=== PATIENT | female | born 1950 | race Caucasian/White ===

== ENCOUNTER → 2017-03-12 | Outpatient (CLI) | payer OTHER ==
[~2017-03-12] MED LIST: CALCIUM 600 +1 EAC1 PO; DUONEB 2.5-0.5 M3 ML INH; EQL OMEGA 3 FI1 EACH PO; FOLIC ACID1 MG PO; HUMIRA40 MG/0.8 SQ; LACTINEX CHEWA1 EACH PO; LEVAQUIN 500 M500 M2 PO; LEVOTHYROXINE0.05 MG PO; LUTEIN20 MG PO; METHOTREXATE 22.5 M1 PO; NAPROSYN500 MG PO; NEURONTIN600 MG PO; PREDNISONE 10 M10 MG PO; TRIAMTERENE-HC1 EAC1 PO; TYLENOL325 MG PO
[2017-03-12 07:44] LABS: CREATININE 1.2 mg/dL (0.6-1.0)
== END ==
LOC: RAD 06:57
PROVIDERS: Otolaryngology Plastic Surgery within the Head & Neck
DX: Z12.31 Encounter for screening mammogram for malignant neoplasm of breast (principal); C80.1 Malignant (primary) neoplasm, unspecified; M47.892 Other spondylosis, cervical region; R06.02 Shortness of breath

== ENCOUNTER → 2018-08-09 | Outpatient (CLI) | payer OTHER ==
[2018-08-09 10:15] LABS: HEMATOCRIT 47.9 % (37.0-47.0); HEMOGLOBIN 15.6 gm/dL (12.0-15.0); MCH 27.8 pg (26.0-34.0); MCHC 32.6 g/dL (28.0-37.0); MCV 85.3 fL (80.0-100.0); RBC 5.62 mil/uL (4.20-5.00); RDW 14.9 % (10.5-14.5); WBC 6.1 thou/uL (4.0-11.0)
[2018-08-09 10:28] LABS: ALBUMIN 3.4 g/dL (3.4-5.0); CREATININE 1.2 mg/dL (0.6-1.0); POTASSIUM 4.5 mmol/L (3.5-5.1); TOTAL BILIRUBIN 0.4 mg/dL (<0.1-1.0); TOTAL PROTEIN 8.2 g/dL (6.4-8.2)
== END ==
LOC: RAD 09:31
PROVIDERS: Otolaryngology Plastic Surgery within the Head & Neck
DX: C01 Malignant neoplasm of base of tongue (principal); J34.2 Deviated nasal septum; H90.3 Sensorineural hearing loss, bilateral; E66.01 Morbid (severe) obesity due to excess calories; Z99.81 Dependence on supplemental oxygen; Z92.3 Personal history of irradiation; Z86.69 Personal history of other diseases of the nervous system and sense organs

== ENCOUNTER → 2018-12-17 | Outpatient (CLI) | payer OTHER | LOC: RAD 11:55 | DX: R06.02 Shortness of breath (principal); R06.00 Dyspnea, unspecified; Z91.048 Other nonmedicinal substance allergy status; Z85.810 Personal history of malignant neoplasm of tongue ==

== ENCOUNTER → 2019-12-09 | Outpatient (CLI) | payer OTHER | LOC: RAD 11:17 | PROVIDERS: ATTEND Internal Medicine Pulmonary Disease | DX: J43.9 Emphysema, unspecified (principal); R91.8 Other nonspecific abnormal finding of lung field ==

== ENCOUNTER → 2020-01-23 | Outpatient (CLI) | payer OTHER ==
[2020-01-23 11:36] LABS: CREATININE 1.1 mg/dL (0.6-1.0)
== END ==
LOC: CAT 10:13
PROVIDERS: ATTEND Otolaryngology Plastic Surgery within the Head & Neck
DX: C01 Malignant neoplasm of base of tongue (principal); H90.3 Sensorineural hearing loss, bilateral; J34.2 Deviated nasal septum; E66.01 Morbid (severe) obesity due to excess calories; Z99.81 Dependence on supplemental oxygen; Z86.69 Personal history of other diseases of the nervous system and sense organs; Z92.3 Personal history of irradiation; Z85.810 Personal history of malignant neoplasm of tongue

== ENCOUNTER → 2020-02-11 | Outpatient (CLI) | payer OTHER | LOC: MRI 08:26 | PROVIDERS: ATTEND Otolaryngology Plastic Surgery within the Head & Neck | DX: J39.2 Other diseases of pharynx (principal); R93.89 Abnormal findings on diagnostic imaging of other specified body structures ==

== ENCOUNTER → 2020-12-07 | Outpatient (CLI) | payer OTHER | LOC: RAD 12:14 | PROVIDERS: ATTEND Internal Medicine Pulmonary Disease | DX: J98.4 Other disorders of lung (principal); M25.78 Osteophyte, vertebrae; J44.9 Chronic obstructive pulmonary disease, unspecified ==

== ENCOUNTER 2021-02-20 16:53 | Inpatient (IN) | payer OTHER ==
[~2021-02-20] VITALS: Ht 157.5 cm; Wt 137.4 kg
[~2021-02-20 16:53] MED LIST changes: -LEVOTHYROXINE0.05 MG PO; +NEURONTIN 400400 M1 PO; -NEURONTIN600 MG PO; +SYNTHROID100 MC1 PO
[2021-02-20 16:59] VITALS: BP 121/90
[2021-02-20 17:34] LABS: ABSOLUTE NEUTROPHILS 7.6 thou/uL (1.4-8.2); BASOPHILS 0.6 % (0.0-2.0); EOSINOPHILS 0.2 % (0.0-3.0); LYMPHOCYTES 1.9 % (24.0-44.0); MCH 27.2 pg (26.0-34.0); MCHC 32.2 g/dL (28.0-37.0); MCV 84.4 fL (80.0-100.0); MONOCYTES 7.9 % (1.0-8.0); PLATELET COUNT 219 thou/uL (150-400); POLYS 89.4 % (36.0-66.0); RBC 6.63 mil/uL (4.20-5.00); RDW 15.3 % (10.5-14.5); WBC 8.5 thou/uL (4.0-11.0)
[2021-02-20 17:58] LABS: ANION GAP 16 mmol/L (7-16); BUN 36 mg/dL (7-18); CALCIUM 8.6 mg/dL (8.5-10.1); CHLORIDE 105 mmol/L (98-107); CO2 21 mmol/L (21-32); CREATININE 1.8 mg/dL (0.6-1.0); GLUCOSE 116 mg/dL (74-106); POTASSIUM 3.7 mmol/L (3.5-5.1); SODIUM 142 mmol/L (136-145)
[2021-02-20 18:07] LABS: ALBUMIN 2.6 g/dL (3.4-5.0); MAGNESIUM 1.5 mg/dL (1.8-2.4); PHOSPHORUS 2.1 mg/dL (2.6-4.7); SALICYLATE < 2.8 mg/dL (2.8-20.0); SGOT 64 U/L (15-37); SGPT 36 U/L (14-59); TOTAL BILIRUBIN 0.4 mg/dL (0.2-1.0); TOTAL PROTEIN 6.7 g/dL (6.4-8.2)
[2021-02-20 19:57] LABS: URINE BLOOD 2+ (Negative); URINE CLARITY CLOUDY; URINE COLOR YELLOW; URINE GLUCOSE-RANDOM* NEGATIVE (Negative); URINE KETONES 1+ (Negative); URINE NITRITE-REFLEX NEGATIVE (Negative); URINE PROTEIN (DIPSTICK) 1+ (Negative); URINE SPECIFIC GRAVITY 1.025 (1.005-1.035); URINE UROBILINOGEN 0.2 E.U./dl (0.2-1.0)
[2021-02-20 20:02] LABS: ICTOTEST (BILI CONFIRMATORY) Negative (Negative); URINE BILIRUBIN NEGATIVE (Negative); URINE LEUKOCYTES-REFLEX 3+ (Negative)
[2021-02-20 20:17] LABS: COARSE GRANULAR CASTS 4-10 Moderate /LPF (None Seen); SQUAMOUS 0-3 Few /LPF (0-3)
[2021-02-20 20:18] LABS: BACTERIA-REFLEX >30 Many /HPF (None Seen); CRYSTALS None Seen /LPF (None Seen); URINE RBC 3-10 Few /HPF (NONE SEEN)
[2021-02-20 20:33] LABS: AMP/METHAMP Negative (Negative); BARBITURATES Negative (Negative); BENZODIAZEPINES Negative (Negative); COCAINE Negative (Negative); METHADONE Negative (Negative); OPIATES Negative (Negative); PCP Negative (Negative)
[2021-02-21] MEDS ORDERED: LEFLUNOMIDE 1010 MG PO (02:07)
[2021-02-21] MEDS ORDERED: ROSUVASTATIN CA10 MG PO (02:08)
[2021-02-21 04:48] LABS: CALCIUM 8.6 mg/dL (8.5-10.1); CREATININE 2.2 mg/dL (0.6-1.0); HEMATOCRIT 50.3 % (37.0-47.0); HEMOGLOBIN 16.2 gm/dL (12.0-15.0); MAGNESIUM 2.3 mg/dL (1.8-2.4); MCH 27.6 pg (26.0-34.0); MCHC 32.3 g/dL (28.0-37.0); MCV 85.5 fL (80.0-100.0); RBC 5.89 mil/uL (4.20-5.00); RDW 15.3 % (10.5-14.5); WBC 9.4 thou/uL (4.0-11.0)
[2021-02-21 04:49] LABS: POTASSIUM 4.7 mmol/L (3.5-5.1)
--- NOTE | 2021-02-21 07:28 | EKG ---
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: jacqueline : 1950 Requested By: Rickey Lozada Order Number: [id number] MD: Fabio Clark Measurements Intervals [place] Rate: 126 P: 54 TX: 123 QRS: 101 QRSD: 94 T: 12 QT: 315 QTc: 457 Interpretive Statements Sinus tachycardia Multiform ventricular premature complexes Probable left atrial enlargement Compared to ECG 05/29/2015 09:29:08 Ventricular premature complex(es) now present Sinus rhythm no longer present Electronically Signed On 02-21-2021 7:28:14 CDT by Fabio Clark [email or web address] <ELECTRONICALLY SIGNED> By: Fabio Clark MD, [facility] 02/21/21 0728 08 08 Fabio Clark MD, [facility] /EPI
--- NOTE | 2021-02-21 07:29 | EKG ---
[address] [address] ELECTROCARDIOGRAM REPORT Name: PHILIP BERNARDO Room #: 170-5 ADM IN M.R.#: [id number] Admission: 02/20/21 Attend Phys: Jeannette Ramos MD Discharge: Date of : 54 Report #: [id number] 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 : 1950 Requested By: Rickey Lozada Order Number: [id number] MD: Fabio Clark Measurements Intervals [place] Rate: 36 P: 68 AR: QRS: 159 QRSD: 168 T: 13 QT: 616 QTc: 477 Interpretive Statements Complete AV block with wide QRS complex Compared to ECG 02/20/2021 17:09:32 AV block, complete (third-degree) now present Sinus tachycardia no longer present Ventricular premature complex(es) no longer present Myocardial infarct finding no longer present Electronically Signed On 02-21-2021 7:28:46 CDT by Fabio Clark [email or web address] <ELECTRONICALLY SIGNED> By: Fabio Clark MD, FACC 02/21/21 0728 171 18 Fabio Clark MD, [facility] /EPI
[2021-02-21 08:47] VITALS: BP 118/69
[2021-02-21 09:49] VITALS: BP 118/69
[2021-02-21 10:15] VITALS: BP 128/61
--- NOTE | 2021-02-21 12:26 | NUR ---
WOUND CARE CONSULT; THE PATIENT AREAS OF CONCERN WERE ASSESSED WITH PICTURES DUE TO COVID RESTRICTIONS. THE BUTTOCKS HAVE A RASH LIKEY CONSITANT WITH INCONTINENCE RELATED DERMITIS RE; DIARRHEA. THE OTHER SKINFOLDS ARE CONSISTANT WITH A FUNGAL ETIOLOGY. RECOMMENDATIONS; BILATERAL BUTTOCKS AREAS; CLEANSE WITH WARM SOAPY WATER, COMPLETLY DRY, APPLY ANTIFUNGAL BARRIER CREAM. ALL OTHER SKIN FOLDS, APPLY INTERDRY, CHANGE WEEKLY/PRN. DISCUSSED WITHE RN TODAY
--- NOTE | 2021-02-21 14:02 | NUR ---
ADMISSION NOTE: 1100 PT ADMITTED TO ROOM 356, ALERT AND ORIENTED X3, FORGETFUL AT TIMES. CURRENTLY ON 3L, SOB WITH EXERTION. DENIES CHEST PAIN. CURTAIN WORKER PLACED ON PT. IVF RUNNING PER ORDER. ASSESSMENT AND ADMISSION COMPLTED. EXCORIATION TO THE BUTTOCKS AND SKIN FOLDS. INTERDRY APPLIED AND ANTIFUGAL CREAM WELL. PT STATES SHE USES A WALKER AT HOME. ENHANCED AND FALL PREACTIONS IN PLACE. DENIES ANY ANY NEEDS SHAUN. WILL CONTINUE TO MONITOR
[2021-02-21 15:38] VITALS: BP 108/69
[2021-02-21 19:46] VITALS: BP 132/66
[2021-02-21 23:23] VITALS: BP 110/68
--- NOTE | 2021-02-21 23:35 | NUR ---
Patient had a 6 beat run of Vtach, asymptomatic. Orders received to recheck BMP and Magnesium levels.
[2021-02-22 00:08] LABS: CALCIUM 8.7 mg/dL (8.5-10.1); CREATININE 2.5 mg/dL (0.6-1.0); MAGNESIUM 2.3 mg/dL (1.8-2.4); POTASSIUM 4.1 mmol/L (3.5-5.1)
--- NOTE | 2021-02-22 05:08 | NUR ---
Patient making slow progress towards outcome goals. Vital signs stable. Requires 3L oxygen/NC for sats mid 90's. Marginal urine output. Chronic bilateral lower extremity pain, denies need ofr pain medication.
[2021-02-22 05:37] VITALS: BP 131/69
[2021-02-22 07:20] LABS: CALCIUM 8.6 mg/dL (8.5-10.1); CREATININE 2.4 mg/dL (0.6-1.0); POTASSIUM 3.9 mmol/L (3.5-5.1)
[2021-02-22 07:37] VITALS: BP 110/60
--- NOTE | 2021-02-22 08:19 | HC ---
[facility] [place] [address] CONSULTATION Name: PHILIP BERNARDO Room #: 356- ADM IN M.R.#: [id number] Admission: 02/20/21 Attend Phys: Clara Dye MD Discharge: Date of : 54 Report #: [id number] THIS REPORT FOR: cc: Preethi Hopkins MD, Kristin E. MD Barry, Joseph W. MD ~ DATE OF SERVICE: 02/21/2021 INFECTIOUS DISEASE CONSULTATION ATTENDING PHYSICIAN: Dr. Ramos. REASON FOR EVALUATION: Pneumonitis, complication of COVID-19 infection with respiratory failure, also complicated urinary tract infection. HISTORY OF PRESENT ILLNESS: The patient is a 70-year-old woman with history of rheumatoid arthritis and perhaps ____ immunosuppression. It is notable she had received Moderna 2 shot series for coronavirus. She apparently had experienced multiple falls at home, cough, some dyspnea, weakness, also loose stools. It is not clear if she had any fevers, but did admit to chills, diminished appetite. Evaluation was undertaken, was found to have a positive coronavirus-19. ID now testing. Lactic acid was elevated at 3.4, on repeat is down to 1.9. Procalcitonin 0.18. Mild to moderate renal impairment. Creatinine 1.8 with estimated GFR of 28. Urine drug screen was negative. Urinalysis did show moderate pyuria, marked bacteriuria. She was empirically started on vancomycin and Zosyn. Overall, she states she feels better. She does admit to some left lower quadrant pain, has been intermittent now she states, that has improved actually. She is maintained on supplemental oxygen at 2.5 liters. ALLERGIES: None known. CURRENT MEDICATIONS: Dexamethasone, zinc, ascorbic acid, pantoprazole, Zosyn, guaifenesin, azithromycin, ceftriaxone. She was not on vancomycin. PAST MEDICAL HISTORY: As described above, rheumatoid arthritis, history of hypothyroidism, throat cancer, Guillain-[place]. SOCIAL HISTORY: No ethanol or tobacco use. Denies illicit drug use. FAMILY HISTORY: Noncontributory. REVIEW OF SYSTEMS: Otherwise unremarkable with the exception of the above. PHYSICAL EXAMINATION: GENERAL: She appears somewhat chronically ill. She is pleasant, cooperative. She is lucid, mild to moderate distress. [address] [address] CONSULTATION Name: PHILIP BERNARDO Room #: [address] [place] [address] IN M.R.#: [id number] Admission: 02/20/21 Attend Phys: Clara Dye MD Discharge: Date of : 54 Report #: [id number] VITAL SIGNS: T-max 103.5, more recently 98.7, pulse 104, respirations 17, blood pressure 118/69. SKIN: Warm, dry, no rashes. HEENT: Nasal cannula in place. Normocephalic. Extraocular muscles intact. NECK: Supple. LUNGS: Few scattered coarse breath sounds bilaterally. HEART: Regular, do not appreciate a murmur. ABDOMEN: She is tender in the left lower quadrant. GENITOURINARY AND RECTAL: Deferred. LABORATORY DATA: Blood cultures are sterile thus far. Electrolytes: Sodium 143, potassium 4.7, chloride 107, bicarbonate is 19, anion gap of 17, BUN and creatinine 42 and 2.2. Estimated GFR of 22. ____ of 2.225. Lactic acid 1.9, down from 3.4. Urine drug screen was negative. Urinalysis: 16-25 white cells, greater than 30 bacteria. Chest x-ray: Patchy interstitial infiltrates. ASSESSMENT AND PLAN: 1. COVID-19 infection, complicated by pneumonitis and respiratory failure. 2. Complicated urinary tract infection. 3. Possible colitis, has been complicated by some renal insufficiency and perhaps level of immune suppression. We will continue empiric therapy with piperacillin/tazobactam. She is adjusted for some renal insufficiency. I think it is reasonable to image her abdomen to exclude inflammatory process involving the left lower quadrant. This could be a contributing factor as well. At this point, she is not overtly toxic. Continue to monitor expectantly at risk for additional complications. <ELECTRONICALLY SIGNED> By: Gary Mata MD 02/22/21 0819 0846 0943 Gary Mata MD /nt
[2021-02-22 11:46] VITALS: BP 122/67
--- NOTE | 2021-02-22 11:52 | NUR ---
PT AWAKE ALERT AOX4, ABLE TO FOLLOW SIMPLE COMMAND AND MAKE NEEDS KNOWN. PT W/ FREQUENT LOOSE BM,SACRUM NOTED W/ EXCORIATION AND REDNESS, EXTRA PROTECTIVE CREAM PLACE, TURN AND REPOSITIONED. PT FOUND TO BE CDIFF POSITIVE AND POSITIVE FOR OCCULT BLOOD. STOOL NOTED TO BE DARK.
--- NOTE | 2021-02-22 15:13 | NUR ---
INITIAL ASSESSMENT: Received consult. NORMAN reviewed chart and spoke with nursing and attending physician. Pt was admitted from home due to COVID. Pt placed in Enhanced Isolation. Pt is febrile and on 3L of O2. Pt is on IV abx. Therapy ordered to evaluate pt for discharge needs. Pt with hx of throat cancer. Pt has used [facility] in the past. NORMAN spoke with pt via phone. Introduced role of SW. Pt is alert/orientated. Pt states she lives at home with dtr and grandchildren. Prior to admission, pt was independent with ADLs. Pt has a walker. There are 2 steps to enter. No steps inside. Pt has used [facility] in the past. No hx of post-acute placement. Pt's PCP is Dr. Preethi Hopkins. Pt states her plan is to return home when medically stable. Pt gave consent for SW to contact her dtr, Melania, to provide update. NORMAN spoke with Melania via phone. Introduced role of NORMAN. Lengthy discussion regarding discharge plan. Melania was recently hospitalized for COVID. Melania states they would prefer to have pt return home and are agreeable with HH. Family does not want pt to go to a nursing facility, but would consider if strongly recommended. ST eval ordered to assess pt's swallowing. Pt's dtr states pt has been eating very slowly and chokes frequently with food and drinks. NORMAN provided Melania with contact info for NORMAN and 3W. NORMAN is following to assist as needed with discharge planning.
--- NOTE | 2021-02-22 17:55 | NUR ---
70F, AOX4, MOVING ALL EXTREMITIES, POSITIVE FOR CDIFF AND OCCULT BLOOD, PT HAVING FREQUENT BOWEL MOVEMENT, GOOD URINE OUTPUT POST LASIX .
[2021-02-22 19:32] VITALS: BP 123/75
--- NOTE | 2021-02-22 20:54 | NUR ---
PT ASLEEP IN SEMIFOWLERS POSITION IN BED. EASILY AROUSED WITH CONVERSATION. O2 NC INCREASED TO 4L. SATURATION 92% ON 3L. 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 RESPIRATORY THERAPIST NOTIFIED. LUNGS CRACKLES. PT GROANS WHEN NOT TALKING. SPEECH CLEAR APPROPRIATE. SOA WITH REPOSITIONING. GENERALIZED EDEMA, OBESE. SCHROEDER TO DD. IVF INTACT. BED ALARM ON. PT ANSWERING QUESTIONS APROPRIATELY AND PROMPTLY. PT PROVIED SNACK. PAIN BLE AND PRN PROVIDED.
[2021-02-23 03:40] VITALS: BP 148/80
[2021-02-23 07:42] LABS: CALCIUM 8.8 mg/dL (8.5-10.1); CREATININE 2.1 mg/dL (0.6-1.0); POTASSIUM 3.9 mmol/L (3.5-5.1)
--- NOTE | 2021-02-23 07:50 | NUR ---
PT REMAINS ON ISOLATION FOR COVID-19. 3L O2 PER NC WITH SATS AROUND 90-94%. SCHROEDER IN PLACE DRAINING CLEAR YELLOW URINE. C-DIFF RESULTED POSITIVE. NON-PRODUCTIVE COUGH NOTIFIED. ROSY AREA AND BUTTOXS ARE EXCORIATED. INCONTINENT OF BOWEL X1, BARRIER CREAM PROVIDED.
[2021-02-23 07:54] VITALS: BP 141/80
[2021-02-23 11:38] LABS: PROT/CREAT RATIO 0.9; URINE CREATININE-RANDOM* 122.1 mg/dL; URINE PROTEIN-RANDOM* 112.1 mg/dL (<11.9)
[2021-02-23 11:59] VITALS: BP 99/60
[2021-02-23 12:00] VITALS: BP 91/67
--- NOTE | 2021-02-23 13:22 | NUR ---
WOUND CARE F/U; THE SKIN FOLDS FUNGAL AREAS ARE BEING TREATED EFFECTIVLY WITH INTERDRY. THE BUTTOCKS AREAS ARE BEING TREATED WITH ANTIFUNGAL BARRIER CREAM. THE AREA IS CONSISTANT WITH A HEMOSIDERIN STAINING PROCESS. NO CHANGES AT THIS TIME.
[2021-02-23 15:16] LABS: HEMATOCRIT 46.3 % (37.0-47.0); HEMOGLOBIN 15.3 gm/dL (12.0-15.0); MCH 27.1 pg (26.0-34.0); MCV 82.2 fL (80.0-100.0); RBC 5.64 mil/uL (4.20-5.00); RDW 15.2 % (10.5-14.5); WBC 6.1 thou/uL (4.0-11.0)
[2021-02-23 15:31] VITALS: BP 120/64
--- NOTE | 2021-02-23 15:48 | 2DMMODE ---
[facility] [place] [address] 2 D/M-MODE ECHOCARDIOGRAM Name: PHILIP BERNARDO Room #: 356-P ADM IN M.R.#: [id number] Admission: 02/20/21 Attend Phys: Clara Dye MD Discharge: Date of : 54 Report #: [id number] THIS REPORT FOR: cc: Preethi Hopkins MD, Kristin E. MD Santiago, Patrick MD [facility] ~ APPROVED REPORT Study performed: 02/23/2021 14:51:07 EXAM: Comprehensive 2D, Doppler, and color-flow Echocardiogram Patient Location: Bedside Room #: 356 Status: routine BSA: 2.17 HR: 81 bpm BP: 99/60 mmHg Rhythm: NSR Other Information Study Quality: Good Indications Dyspnea Morbid obesity, Covid 19 2D Dimensions RVDd: 31.31 mm IVSd: 14.73 (7-11mm) LVOT Diam: 20.19 (18-24mm) LVDd: 32.74 mm PWd: 14.59 (7-11mm) Ascending Ao: 25.92 (22-36mm) LVDs: 27.29 (25-40mm) Left Atrium: 44.66 (27-40mm) Aortic Root: 32.37 mm Volumes Left Atrial Volume (Systole) Single Plane 4CH: 49.12 mL Single Plane 2CH: 51.71 mL LA ESV Index: 28.00 mL/m2 Aortic Valve AoV Peak Dax.: 1.39 m/s AO Peak Gr.: 7.77 mmHg LVOT Max P.06 mmHg LVOT Max V: 1.33 m/s [facility] [address] [place] [address] 2 D/M-MODE ECHOCARDIOGRAM Name: OSIRIS BERNARDOETTE Room #: 356-P [facility] IN [facility].#: [id number] Admission: 02/20/21 Attend Phys: Michael Lynne Discharge: Date of : 54 Report #: [id number] [id number] Vmax: 3.05 cm2 AI Vmax: 4.27 m/s AI [place]: 1.82 m/s2 AI PHT: 679.22 ms Mitral Valve E/A Ratio: 0.5 MV Decel. Time: 289.24 ms MV E Max Dax.: 0.59 m/s MV A Dax.: 1.15 m/s MV PHT: 83.88 ms IVRT: 133.79 ms Pulmonary Valve PV Peak Dax.: 1.13 m/s PV Peak Gr.: 5.09 mmHg Pulmonary Vein P Vein S: 0.37 m/s P Vein A: 0.28 m/s P Vein D: 0.13 m/s P Vein A Dur.: 110.7 msec P Vein S/D Ratio: 2.85 Left Ventricle The left ventricle is normal size. Moderate concentric left ventricular hypertrophy. The left ventricular systolic function is normal. The left ventricular ejection fraction is within the normal range. LVEF is 65%. Grade I - abnormal relaxation pattern. Right Ventricle The right ventricle is normal size. The right ventricular systolic function is normal. Atria The left atrium size is normal. The right atrium size is normal. Aortic Valve The aortic valve is normal in structure. The Aortic valve is sclerotic. Mild aortic regurgitation. There is no aortic valvular stenosis. Mitral Valve The mitral valve is normal in structure. Mitral valve leaflets are thickened. Trace mitral regurgitation. No evidence of mitral valve stenosis. Tricuspid Valve [facility] [address] [place] [address] 2 D/M-MODE ECHOCARDIOGRAM Name: PHILIP BERNARDO Room #: 356-P [facility] IN .R.#: [id number] Admission: 02/20/21 Attend Phys: Michael Lynne Discharge: Date of : 54 Report #: [id number] The tricuspid valve is normal in structure. There is no tricuspid valve regurgitation noted. Pulmonic Valve The pulmonary valve is normal in structure. There is no pulmonic valvular regurgitation. Great Vessels The aortic root is normal in size. IVC is normal in size and collapses >50% with inspiration. Pericardium There is no pericardial effusion. <Conclusion> Normal left ventricle size with moderate concentric hypertrophy Ejection fraction 65% Grade 1 diastolic function Normal right ventricle size/function Normal atrial size Mild aortic valve insufficiency Mild to moderate mitral annular calcification No evidence of mitral valve dysfunction No tricuspid valve insufficiency No pericardial effusion Normal aortic root size. <ELECTRONICALLY SIGNED> By: Fabio Clark MD, FACC 02/23/21 154 [id number] 154 Fabio Clark MD, FACC /INF
[2021-02-23 16:57] LABS: MAGNESIUM 1.8 mg/dL (1.8-2.4)
--- NOTE | 2021-02-23 17:43 | NUR ---
Patient is alet and oriented x4. She has even respirations. Patients lung sounds this shift are diminished with coarse diminshed breath sounds. Patients has pulses felt bilaterally in both upper and lower extremities. Patient has edema +2 in her lower extremities. Patient has had two incontinent BM's this shift. Patietns bottom is extremely excoriated. Cream is applied to patients bottom. Patients IV in her right AC came out. New IV a 20g was placed in patients right hand was placed. Patient has had a decresed appetite with all three meals. Patient has been encouraged to eat and take in supplement. Patient will continue to be monitored.
[2021-02-23 19:08] VITALS: BP 116/71
--- NOTE | 2021-02-23 22:33 | NUR ---
PT ALERT X3. VSS AFEBRILE. UNLABORED ONO2 4LNC PRESENTLY. NO C/O PAIN. WATCHING TV. NO S/S DISTRESS. WILL CONTINUE TO MONITOR PT FOR CHANGES.
[2021-02-24 04:21] VITALS: BP 140/90
[2021-02-24 06:25] LABS: ALBUMIN 2.5 g/dL (3.4-5.0); CALCIUM 8.6 mg/dL (8.5-10.1); CREATININE 1.8 mg/dL (0.6-1.0); PHOSPHORUS 3.4 mg/dL (2.5-4.9)
--- NOTE | 2021-02-24 07:11 | EKG ---
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 : 1950 Requested By: Clara Dye Order Number: [id number] MD: Fabio Clark Measurements Intervals [place] Rate: 78 P: 20 [place]: 146 QRS: 77 QRSD: 115 T: 111 QT: 356 QTc: 406 Interpretive Statements Sinus rhythm Abnormal T, consider ischemia, lateral leads Artifact in lead(s) I,III,aVR,aVL,aVF Compared to ECG 02/20/2021 17:19:49 T-wave abnormality now present Possible ischemia now present AV block, complete (third-degree) no longer present Electronically Signed On 02-24-2021 7:10:54 CDT by Fabio Clark [email or web address] <ELECTRONICALLY SIGNED> By: Fabio Clark MD, FACC 02/24/21 0710 181 181 Fabio Clark MD, FAC /EPI
[2021-02-24 08:35] VITALS: BP 120/68
[2021-02-24 12:13] VITALS: BP 113/62
--- NOTE | 2021-02-24 14:17 | NUR ---
NORMAN reviewed chart and spoke with nursing and attending physician. Pt remains in Enhanced Isolation due to COVID. Pt is afebrile and on 6L of O2. Pt required up to 12L with activity. Pt is on IV abx, IV steorids and IV lasix. NORMAN placed call to pt's room. The line was busy. NORMAN spoke with pt's dtr, Melania, via phone. Provided update and discussed discharge plan. Pt's family is hoping that pt will be able to return home with HH and possibly home O2. Pt's dtr states she would need to discuss with pt and family if post-acute care is being recommended. NORMAN provided options for in-network SNFs accepting COVID pts. NORMAN notified [facility] liaison of pt needing HH services. Pt's dtr requested to speak with physician regarding pt's medications. NORMAN provided Melania's contact info to attending physician. NORMAN is following to assist as needed with discharge planning.
[2021-02-24 17:03] VITALS: BP 113/67
--- NOTE | 2021-02-24 18:27 | NUR ---
PATIENT IS ALERT AND ORIENTED X3 THIS SHIFT. SHE IS UNSURE OF WHEN IT IS. PATIENT HAS EVEN RESPIRATIONS AND OCCASIONALLY REPORTS THAT SHE FEEL SHORT OF BREATH. PATIENT WAS ON 4L OF OXYGEN BUT WAS INCREASED TO 5L OF OXYGEN HER SATURATION KEPT FALLING BELOW 90%. PATIENT WAS ALSO ADDED TO CONTINOUS OXYGEN MONITORING. PATIENTS BOTTOM IS EXCORIATED SHE HAS BEEN CLEANED/ TURNED EVERY TWO HOURS AND THE CREAM HAS BEEN APPLIED. PATIENT HAS HAD FIVE INCONTINENT STOOLS THIS SHIFT. PATIENTS STOOLS ARE A GREENISH BROWN COLOR. PATIENT HAD AN ORDER FOR A URINE SPECIMENT TO BE COLLECTED. SPECIMEN WAS COLLECTED AND TAKEN TO THE LAB. PATIENT STILL HAS A SCHROEDER CATHETER IN PLACE. PATIENTS APPETITE CONTINUES TO REMAIN POOR BUT AFTER EDUCATION ON WOUND HEALING HAS BEEN DRINKING ALL OF HER SUPPLEMENTS. PATIENT IS STARTED ON REMDESIVIR THIS SHIFT AND THE MEDICATION IS CURRENTLY RUNNING. PATIENT REPORTS THAT SHE HAS PAIN IN HER LEFT HIP DUE TO ARTHRITIS AND THAT SHE HAS HAD IT FOR YEARS. PATIENT WAS MEDICATED FOR PAIN PER HER ORDERS. PATIENT HAS NO FURTHER MEDICAL CONCERNS OF COMPLAINTS AT THIS TIME. PATIENT WILL CONTINUE TO BE MONITORED.
[2021-02-24 18:48] LABS: URINE BILIRUBIN NEGATIVE (Negative); URINE BLOOD TRACE (Negative); URINE CLARITY CLEAR; URINE COLOR YELLOW; URINE GLUCOSE-RANDOM* NEGATIVE (Negative); URINE KETONES NEGATIVE (Negative); URINE LEUKOCYTES-REFLEX NEGATIVE (Negative); URINE NITRITE-REFLEX NEGATIVE (Negative); URINE PROTEIN (DIPSTICK) NEGATIVE (Negative); URINE UROBILINOGEN 0.2 E.U./dl (0.2-1.0)
[2021-02-24 19:30] VITALS: BP 131/67
--- NOTE | 2021-02-24 22:47 | NUR ---
PT RESTING IN BED, INCREASE IN NC O2 NEEDS YESTERDAY. SOA WITH EXERTION. LUNGS COARSE. PT CHEERFUL AND TALKATIVE. SCHROEDER TO DD. ROSY AND GROIN AREA RED AND BARRIER CREAM APPLIED. PT REPORTS L HIP DISCOMFORT WITH REPOSITIONING, BUT RELIEVED ONCE IN POSITION. ISOLATION CDIFF AND COVID. PT HAD HS SNACK. BED ALARM ON.
[2021-02-25 04:55] VITALS: BP 117/78
--- NOTE | 2021-02-25 05:26 | NUR ---
02 SAT MAINTAINING AT 84% ON 5L. FINGER PROBE AND NC CHANGED, INCREASED TO 6L WENT TO 85%. RESPIRATORY CAME TO SEE PT, NOW ON 10L. PROVIDER CONTACTED, STAT CHEST XRAY AND ABG ORDERED.
[2021-02-25 06:00] LABS: BE(vivo) 0.3 mmol/L (-2 to +3); HCO3 25.1 mmol/L (22.0-26.0); PCO2 41.4 mmHg (35.0-45.0); pH 7.401 (7.360-7.450); sO2 88.1 % (92.0-98.0)
--- NOTE | 2021-02-25 06:06 | NUR ---
PROVIDER CALLED WITH ABG RESULTS. PULMONARY IS NOT CONSULTED AND PROVIDER UPDATED.
--- NOTE | 2021-02-25 06:38 | NUR ---
PULMONARY CONSULT CALLED. PT ASKED IF SHE WANTED NURSE TO CALL DAUGHTER. PT STATED SHE WOULD CALL DAUGHTER AND PICKED UP CELL PHONE.
[2021-02-25 06:54] LABS: ALBUMIN 2.3 g/dL (3.4-5.0); CALCIUM 8.8 mg/dL (8.5-10.1); CREATININE 1.8 mg/dL (0.6-1.0); DIRECT BILIRUBIN 0.1 mg/dL (<0.1-0.2); PHOSPHORUS 3.1 mg/dL (2.5-4.9); POTASSIUM 3.7 mmol/L (3.5-5.1); TOTAL BILIRUBIN 0.3 mg/dL (0.2-1.0); TOTAL PROTEIN 6.5 g/dL (6.4-8.2)
[2021-02-25 07:48] VITALS: BP 126/7
[2021-02-25 11:17] VITALS: BP 132/78
--- NOTE | 2021-02-25 14:25 | NUR ---
SW reviewed chart and spoke with nursing and attending physician. Pt remains in Enhanced Isolation due to COVID. Pt is afebrile and now requiring optiflow. Pt is on IV meds/abx and Remdesivir. Pulmonary consulted today. Pt may need to transfer to ICU. No weekend discharge planned. NORMAN is following to assist as needed with discharge planning.
[2021-02-25 15:36] VITALS: BP 113/67
[2021-02-25 17:55] LABS: HEMATOCRIT 47.2 % (37.0-47.0); HEMOGLOBIN 15.4 gm/dL (12.0-15.0); MCH 27.1 pg (26.0-34.0); MCHC 32.6 g/dL (28.0-37.0); RBC 5.68 mil/uL (4.20-5.00); RDW 14.8 % (10.5-14.5); WBC 3.8 thou/uL (4.0-11.0)
[2021-02-25 18:08] LABS: CALCIUM 8.6 mg/dL (8.5-10.1); CREATININE 1.9 mg/dL (0.6-1.0); POTASSIUM 3.8 mmol/L (3.5-5.1)
[2021-02-25 18:16] LABS: MAGNESIUM 1.6 mg/dL (1.8-2.4)
--- NOTE | 2021-02-25 18:44 | NUR ---
pt increased to optiflow this morning. stable. complains of chest pain in afternoon. cardiac workup negative so far. labs still pending. patient sleeping comfortably.
[2021-02-25 18:48] VITALS: BP 115/68
--- NOTE | 2021-02-26 00:40 | NUR ---
PT AWAKE WATCHING TV IN BED. PT ABLE TO REPOSITION UPPER BODY AND MOVES RLE EASILY, PT REPORTS POSITION PAIN WITH L HIP. OPTI ROXANNE INTACT. LUNGS COARSE, SKIN TONE DUSKY. GENERALIZED EDEMA. SCHROEDER TO DD, ON 24 HR URINE UNTIL 0930 AM. ANTI FUNGAL CREAM TO GROIN AND ROSY AREA. INCONTINENT OF STOOL, CDIFF ISOLATION. NO C/O CHEST DISCOMFORT. PT HAD HS SNACK. BED ALARM ON.
--- NOTE | 2021-02-26 04:18 | NUR ---
PT O2 SAT DURING SLEEP WAS 89 TO 90, SHE SLEEPS WITH MOUTH OPEN. RESPIRATORY NOTIFIED, PT NOW HAS ON REBREATHER WITH OPTI ROXANNE. SATS 90.
--- NOTE | 2021-02-26 06:11 | NUR ---
TALKED WITH PT IF SHE WOULD CONSIDER SLEEPING ON HER STOMACH TO POSSIBLE HELP WITH HER OXYGEN SATURATION. PT STATED SHE WOULD CONSIDER IT.
[2021-02-26 06:19] LABS: ABSOLUTE NEUTROPHILS 4.1 thou/uL (1.4-8.2); BASOPHILS 0.1 % (0.0-2.0); HEMATOCRIT 49.5 % (37.0-47.0); LYMPHOCYTES 2.5 % (24.0-44.0); MCHC 32.4 g/dL (28.0-37.0); MCV 83.3 fL (80.0-100.0); MONOCYTES 10.7 % (1.0-8.0); PLATELET COUNT 219 thou/uL (150-400); POLYS 86.7 % (36.0-66.0); RBC 5.94 mil/uL (4.20-5.00); WBC 4.7 thou/uL (4.0-11.0)
--- NOTE | 2021-02-26 06:35 | NUR ---
PT HAD 5 BEAT VTACH NOT SYMPTOMATIC. RESPIRATORY NOTIFIED. PT O2 SAT 87 88% WITH OPTI ROXANNE AWAKE AND NRB MASK. THERAPIST COMING TO SEE PT.
[2021-02-26 06:59] LABS: ALBUMIN 2.3 g/dL (3.4-5.0); CALCIUM 8.7 mg/dL (8.5-10.1); CREATININE 1.7 mg/dL (0.6-1.0); DIRECT BILIRUBIN 0.1 mg/dL (<0.1-0.2); PHOSPHORUS 2.9 mg/dL (2.5-4.9); POTASSIUM 3.6 mmol/L (3.5-5.1); TOTAL BILIRUBIN 0.3 mg/dL (0.2-1.0); TOTAL PROTEIN 6.3 g/dL (6.4-8.2)
[2021-02-26 07:04] VITALS: BP 111/53
[2021-02-26 11:18] VITALS: BP 127/80
--- NOTE | 2021-02-26 11:29 | EKG ---
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 Tutor: FSCHWALMARIO : 1950 Requested By: Jeannette Ramos Order Number: [id number] MD: Ezequiel Pugh Measurements Intervals [place] Rate: 81 P: 28 WI: 134 QRS: 115 QRSD: 108 T: 62 QT: 331 QTc: 385 Interpretive Statements Sinus rhythm Occasional supraventricular complexes Probable left atrial enlargement Right ventricular conduction delay Nonspecific T wave abnormality Compared to ECG 02/23/2021 18:14:45 Atrial premature complex(es) now present Electronically Signed On 02-26-2021 11:29:23 CDT by Ezequiel Pugh [email or web address] <ELECTRONICALLY SIGNED> By: Ezequiel Pugh MD, [facility] 02/26/21 1129 1728 1728 Ezequiel Pugh MD, [facility] /EPI
--- NOTE | 2021-02-26 11:38 | EKG ---
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: : 1950 Requested By: Jeannette Ramos Order Number: [id number] MD: Ezequiel Pugh Measurements Intervals [place] Rate: 81 P: 26 TX: 128 QRS: 128 QRSD: 107 T: 36 QT: 390 QTc: 453 Interpretive Statements Sinus rhythm Atrial premature complexes Right ventricular conduction delay Compared to ECG 02/25/2021 17:28:24 No significant changes found Electronically Signed On 02-26-2021 11:37:57 CDT by Ezequiel Pugh [email or web address] <ELECTRONICALLY SIGNED> By: Ezequiel Pugh MD, [facility] 02/26/21 1137 1041 1041 Ezequiel Pugh MD, FACC /EPI
[2021-02-26 12:13] LABS: URINE CREATININE 57.05 mg/dL; URINE PROTEIN (MG/DL) 42.6 mg/dL
[2021-02-26 15:14] VITALS: BP 108/63
[2021-02-26 15:56] VITALS: BP 127/71
--- NOTE | 2021-02-26 18:05 | NUR ---
PT IS CURRENTLY ON 50L AND 100% OPTIFLOW, SOB WITH ANY ACTIVITY. PT HAD 2 LOOSE BM TODAY. CONTINUE TO BE IN ISOLATION FOR COVID AND C-DIFF. SCHROEDER IN PLACE. REPOSITION EVERY 2 HOURS. FALL PRECAUTIONS, WILL CONTINUE TO MONITOR
[2021-02-26 20:14] VITALS: BP 135/70
[2021-02-26 23:47] VITALS: BP 125/71
[2021-02-27] VITALS (71 sets, daily range): BP systolic 63–164; BP diastolic 40–121
[2021-02-27 00:04] LABS: HCO3 22.8 mmol/L (22.0-26.0); PCO2 36.1 mmHg (35.0-45.0); pH 7.419 (7.360-7.450); sO2 87.9 % (92.0-98.0)
[2021-02-27 00:05] LABS: PO2 52.3 mmHg (80.0-100.0)
--- NOTE | 2021-02-27 01:09 | NUR ---
PT CARE ASSUMED WITH PT IN BED WATCHING TV.PT IS A/O X4.PT ON OPTIFLOW AND SAT 92% AT START OF SHIFT.PT CONTINUE DESAT TO 78% AND BIPAP STARTED BUT SAT 82%.MONTSE MALLOY NOTIFIED AND ABG STAT ORDERED AND MORPHINE 2MG ONETIME AND DR JIM NOTIFIED AND SAID OT TRANSFER TO ICU .PT TRANSFERED TO ICU AT 0020 WITH BIPAP.
[2021-02-27 01:34] LABS: BE(vivo) -2.4 mmol/L (-2 to +3); HCO3 23.7 mmol/L (22.0-26.0); PCO2 45.4 mmHg (35.0-45.0); PO2 64.7 mmHg (80.0-100.0); pH 7.336 (7.360-7.450); sO2 91.3 % (92.0-98.0)
[2021-02-27 07:25] LABS: ABSOLUTE NEUTROPHILS 7.4 thou/uL (1.4-8.2); BASOPHILS 0.2 % (0.0-2.0); HEMATOCRIT 47.3 % (37.0-47.0); HEMOGLOBIN 15.4 gm/dL (12.0-15.0); LYMPHOCYTES 2.6 % (24.0-44.0); MCH 27.1 pg (26.0-34.0); MCHC 32.6 g/dL (28.0-37.0); MCV 83.3 fL (80.0-100.0); MONOCYTES 7.8 % (1.0-8.0); PLATELET COUNT 238 thou/uL (150-400); POLYS 89.4 % (36.0-66.0); RBC 5.68 mil/uL (4.20-5.00); RDW 15.1 % (10.5-14.5); WBC 8.3 thou/uL (4.0-11.0)
--- NOTE | 2021-02-27 07:44 | NUR ---
PT ADMITTED TO RM 238 FROM 3WEST AROUND 0045 FOR INCREASED SOA REQUIRING MECH VENTILATION. ABGS CALLED TO DR JIM AND ER DR CAME UP TO INTUBATE PT. ETT 7.5 23 AT CORNER OF MOUTH INSERTED. PT SEDATED ON PROPOFOL AT 25 MCG. LEVOPHED STARTED DUE TO BP WENT INTO 60'S AND 70'S. AFTER LEVOPHED AT 5 MCG PTS'S BP HAS BEEN WNL. SATS WNL ON CURRENT VENT. SETTINGS OF PC 35, PEEP 15, RT 30, AND FIO2 90%. I INFORMED PT'S DAUGHTER WE MOVED PT TO THE ICU. ATTEMPTED TO GET AHOLD OF DAUGHTER AGAIN TO NOTIFIY HER WE PLACED PT IN RESTRAINTS TO PROTECT ETT. NO CALL RETURNED YET THIS AM. DAY SHIFT NS NOTIFIED TO F/U. [facility] LAB[facility] STILL PENDING. PERFORMED THIS AM SEPSIS ASSESSMENT ON LAB RESULTS.
[2021-02-27 10:32] LABS: ALBUMIN 2.4 g/dL (3.4-5.0); CALCIUM 8.5 mg/dL (8.5-10.1); CREATININE 1.8 mg/dL (0.6-1.0); DIRECT BILIRUBIN 0.5 mg/dL (<0.1-0.2); PHOSPHORUS 3.1 mg/dL (2.5-4.9); TOTAL BILIRUBIN 1.2 mg/dL (0.2-1.0); TOTAL PROTEIN 5.9 g/dL (6.4-8.2)
[2021-02-27 10:43] LABS: POTASSIUM 3.7 mmol/L (3.5-5.1)
--- NOTE | 2021-02-27 12:51 | NUR ---
VAT CONSULTED FOR CVAD. PT'SLABS,MEDS,HX,ORDER AND CONSENT VERIFIED. RIJ WAS WIDELY PATENT WITH USG. 6FR TL POWER JACC 25CM INSERTED X1 STICDK TO 8CM EXTERNAL. STAT CXR ORDERED.BLEEDING AT SITE GAUZE APPLIED.
--- NOTE | 2021-02-27 13:42 | NUR ---
CXR CONFIRMED RIJ PLACEMENT NEAR CAJ. IJ RELEASED FOR IMMEDIATE USE PER PROTOCOL
--- NOTE | 2021-02-27 16:45 | NUR ---
proned, head placed in surgical head pillow/device with assistance of 2 RT's and 3 RN's and 1 vice president of nursing. all well tolerated, sao2 up to 100%.
[2021-02-28] VITALS (97 sets, daily range): BP systolic 67–178; BP diastolic 45–100
[2021-02-28 05:08] LABS: CREATININE 1.5 mg/dL (0.6-1.0); DIRECT BILIRUBIN 0.3 mg/dL (<0.1-0.2); PHOSPHORUS 3.1 mg/dL (2.6-4.7); POTASSIUM 3.4 mmol/L (3.5-5.1); TOTAL BILIRUBIN 0.8 mg/dL (0.2-1.0); TOTAL PROTEIN 5.3 g/dL (6.4-8.2)
--- NOTE | 2021-02-28 08:19 | NUR ---
PATIENT PRONED ON DAY SHIFT AND FLIPPED AT 0410 TODAY. PATIENT BECAME HYPOTENSIVE AND REQUIRED LEVO GTT. PATIENT CONTINUES PROPOFOL GTT.
--- NOTE | 2021-02-28 09:25 | NUR ---
Nutrition: REC Vital AF at 40 mL/hr goal rate, add beneprotein in water flushes if ordered
--- NOTE | 2021-02-28 10:19 | NUR ---
PT HAS HAD DECLINE IN MEDICAL STATUS AND NOT APPROPRIATE FOR OT EVAL AT THIS TIME. IF MEDICAL STATUS CHANGES, PLEASE SUBMIT NEW OT ORDER FOR EVALUATION
--- NOTE | 2021-02-28 12:58 | NUR ---
WOUND CARE F/U; AN ASSESSMENT WAS COMPLETED TODAY. THE SKIN FILDS AND BUTTOCKS AREAS SHOW IMPROVEMENTS. THE BUTTOCKS HAS TINY AREAS THAT REMAIN OPEN. CURRENTLY USING ANTFUNGAL BARRIER AND GOOD WOUND CLEANSING. NO CHANGES ARE NECCESSARY TODAY.
--- NOTE | 2021-02-28 16:00 | NUR ---
surgical consent signed by pt's son prior to surgery. to surgery per icu bed with internal investigator accompanied by OR crew.
--- NOTE | 2021-02-28 16:28 | NUR ---
Cm reviewed chart and spoke with care team during rounds. Pt is sedated maintained on ventilatory support FiO2 75% PEEP of 15. Pt is covid and cdiff positive. Pt is on oral and iv van. It is to be consulted related to her NG. Cm following.
--- NOTE | 2021-02-28 17:10 | NUR ---
dobhoff not patent, unable to pass any fluid or meds. notified Dr. Dye/Dr. John, orders received and placed for IR placement of NG/OG since pt had HX: throat cancer. RN called IR department, no staff present. obtained Dr. Alonzo's phone number, then promptly called at [phone]. informed by , pt would require scoping performed by GI team. ng/og lacks "marking" that is highlighted under fluoroscopy. notified Dr. Dye. Proning held off in anticipation of placement of NG/OG today.
--- NOTE | 2021-02-28 17:19 | NUR ---
returned from surgery on icu bed, registered nurse cardiac telemetry accompanied by surgery crew. sedated on vent, dilaudid iv gtt and ns 100cc/hr restarted. ST, trach shiley 7.0 XLT attached to vent- continuing previous vent settings. lungs clear, mid abd large Wound Vac Ultra 125mmHg with serosanguinous drainage 125cc present on icu arrival. small guaze intact in r previous peg site. peg intact, clamped in left abd, 7.5cm at hub. georges intact draining yellow urine with sediment. a couple of family members present, they each came to see pt, one by one then only remained briefly. they stated that Dr. Barnett spoke with family notifying them after surgery.
[2021-03-01] VITALS (125 sets, daily range): BP systolic 88–156; BP diastolic 51–86
[2021-03-01 04:39] LABS: HEMATOCRIT 49.6 % (37.0-47.0); HEMOGLOBIN 15.9 gm/dL (12.0-15.0); MCH 26.7 pg (26.0-34.0); MCV 83.5 fL (80.0-100.0); RBC 5.94 mil/uL (4.20-5.00); RDW 15.4 % (10.5-14.5)
[2021-03-01 04:48] LABS: ALBUMIN 2.3 g/dL (3.4-5.0); CALCIUM 8.3 mg/dL (8.5-10.1); DIRECT BILIRUBIN 0.3 mg/dL (<0.1-0.2); PHOSPHORUS 4.3 mg/dL (2.6-4.7); POTASSIUM 4.7 mmol/L (3.5-5.1); TOTAL BILIRUBIN 0.5 mg/dL (0.2-1.0); TOTAL PROTEIN 5.7 g/dL (6.4-8.2)
[2021-03-01 04:50] LABS: CREATININE 2.5 mg/dL (0.6-1.0)
--- NOTE | 2021-03-01 06:11 | NUR ---
NO ACUTE EVENTS OVERNIGHT. PT REMAINS ON LOW DOSE LEVOPHED.
--- NOTE | 2021-03-01 12:36 | NUR ---
spoke with daughter regarding egd for placement of oral gastric tube or nasal gastric tube, consent signed. [id number] procedure occurred. despite fentanyl increased to 100mcg/hr, versed to 6 then 10mg/hr, pt required additional sedation. per md order, versed 3 mg iv x 2 administered. placement of oral gastric tube performed with stat portable chest x ray pending. well tolerated.
--- NOTE | 2021-03-01 15:50 | NUR ---
CM DISCUSSED CARES WITH TEAM DURING UNIT ROUNDS THIS AM. PT CONTINUES ON THE VENT FIO2 60% PEEP OF 15. PT WENT TO HAVE GI PLACE OG TUBE THIS DAY. CM FOLLOWING.
--- NOTE | 2021-03-01 17:30 | NUR ---
PULLED BACK OG TO 75 CM AT TEETH, AIR BOLUS CONFIRMED.
--- NOTE | 2021-03-01 17:45 | NUR ---
ART, RT INCREASED SA02 TO 100% WITH SA02 NOTED LOW 90% AFTER PRONING. PRONED WITH 4 RN'S AND 1 RT, WELL TOLERATED.
[2021-03-02] VITALS (95 sets, daily range): BP systolic 87–156; BP diastolic 43–73
--- NOTE | 2021-03-02 04:12 | NUR ---
0300 PT TURNED BACK SUPINE, 4 RN'S AND RT AT BEDSIDE ASSISTING. NO COMPLICATIONS.
[2021-03-02 05:23] LABS: MCH 27.4 pg (26.0-34.0); MCHC 32.5 g/dL (28.0-37.0); MCV 84.3 fL (80.0-100.0); RBC 4.99 mil/uL (4.20-5.00); RDW 15.6 % (10.5-14.5); WBC 8.2 thou/uL (4.0-11.0)
[2021-03-02 06:02] LABS: HEMOGLOBIN 13.7 gm/dL (12.0-15.0)
[2021-03-02 06:09] LABS: CALCIUM 8.1 mg/dL (8.5-10.1); CREATININE 2.3 mg/dL (0.6-1.0)
--- NOTE | 2021-03-02 14:16 | NUR ---
Tube feeding off at this time, plan for prone around 1430.
--- NOTE | 2021-03-02 15:45 | NUR ---
1545- Patient placed in prone position, she was momentarily restless, however became more calm after turn.
--- NOTE | 2021-03-02 19:00 | NUR ---
Patient progressing towards plan of care as evidenced by ability to wean down on fio2. She appears to improve oxygenation when prone, and she was able to come off levophed after prone placement. Plan of care is to continue to monitor patient vital signs, gtt needs, and overall assessments.
[2021-03-03] VITALS (96 sets, daily range): BP systolic 104–153; BP diastolic 45–73
[2021-03-03 05:23] LABS: HEMATOCRIT 38.9 % (37.0-47.0); HEMOGLOBIN 12.7 gm/dL (12.0-15.0); MCH 27.2 pg (26.0-34.0); MCHC 32.6 g/dL (28.0-37.0); MCV 83.5 fL (80.0-100.0); RBC 4.66 mil/uL (4.20-5.00); RDW 15.6 % (10.5-14.5); WBC 7.4 thou/uL (4.0-11.0)
[2021-03-03 05:31] LABS: CALCIUM 8.1 mg/dL (8.5-10.1); POTASSIUM 3.9 mmol/L (3.5-5.1)
--- NOTE | 2021-03-03 09:46 | NUR ---
WOUND CARE F/U; ASSESSMENT OF THE PANNOUS AND GROIN AREAS. THESE AREAS ARE HEALED. NO ODOR. THE BILATERAL BUTTOCKS ARE HEALED. ONLY HEMOSIDRIN STAINING REMAINS. RECOMMENDATIONS; CONTINUE CURRENT WOUND CARE ORDERS FOR PREVENTION. CONTINUE TO TURN AND OFFLOAD WITH PILLOW AND WEDGES,HEELS ETC. RN PRESENT.
--- NOTE | 2021-03-03 12:35 | NUR ---
If OGT unclogged and able to use, recommend new tube feed goal of vital AF at 55ml/hr with 250ml water flushes every 6hr
--- NOTE | 2021-03-03 14:05 | NUR ---
Case discussed in ICU rounds this morning. Pt remains vented but is down to 50% FIO2. Proning prn, renal following due to elev cre and decreased urine output, being treated for cdiff, on levo, responsive to painful stimuli,and GI to address clogged og tube for enteral feedings. Nursing has updated the pt's dtr. DC needs and timeframe are uncertain at this time pending her progress. Will continue to follow.
--- NOTE | 2021-03-03 15:38 | NUR ---
PT IS PROGRESSING TOWARD POC EVIDENCED BY LOWERING FI02 TO 0.45. THE VERSED IS IS AT 2MG/ML GTT WHICH HAS BEEN ADEQUATE FOR THE PT COMFORT, BREATHING, AND LOC. SHE IS FOLLOWING COMMANDS VIA SQUEEZING WITH BOTH HANDS MODERATELY; SHE OPENS HER EYES TO VERBAL COMMAND. THIS PT IS PARRA AND WILL LIFT HERSELF OFF THE BED WHILE DOING ORAL CARE. SHE HAS NORMAL RR THAT IS EVEN AND NONLABORIOUS AND SATTING 96-99%. THE LEVOPHED REMAINS OFF ALL DAY WITH A MAP > 60.
--- NOTE | 2021-03-03 18:58 | NUR ---
THIS RN NOTIFIES THE CARDIOLOGY ANS SERV THAT THIS PT HAS A RUN OF 15 BEATS SHOWING VT. MAG REPLACEMENT 2GM INITIATED PER THE PROTOCOL. THIS PT HAS AN ADEQUATE MAP AND OXYGENATION.
[2021-03-04] VITALS (77 sets, daily range): BP systolic 99–162; BP diastolic 47–84
[2021-03-04 06:04] LABS: ALBUMIN 3.2 g/dL (3.4-5.0); CALCIUM 8.7 mg/dL (8.5-10.1); CREATININE 1.6 mg/dL (0.6-1.0); POTASSIUM 3.5 mmol/L (3.5-5.1); TOTAL BILIRUBIN 0.9 mg/dL (0.2-1.0); TOTAL PROTEIN 5.2 g/dL (6.4-8.2)
--- NOTE | 2021-03-04 14:04 | NUR ---
PT IS NOT PROGRESSING TOWARD THE POC EVIDENCED BY INCREASING DEMAND FOR FIO2 FROM 0.5 TO CURRENTLY 0.7 AND PEEP INCREASING TO 14. PT IS SATTING 91% HAS BEEN DESSATING TO 88% THROUGHOUT THE DAY. DR AGUILERA IS AWARE OF THE INCREASE OXYGEN DEMAND. PT REMAINS OFF LEVOPHED WHILE MAINTAINING MAP>70 WITH A NSR. CARDIOLOGY WAS AT THE BEDSIDE THIS MORNING THEY DID NOT ADD ORDERS AT THIS TIME. THIS PT IS REQUIRING MORE SEDATION FOR COMFORT BUT FOLLOWS COMMANDS AND PARRA. HER UO IS ADEQUATE; SHE HAS A NEGATIVE FLUID STATUS. UROLOGY IS CONSULTED FOR HEMATURIA AFTER THE UROLOGIST CAME TO THE BEDSIDE NO ORDERS ARE RECEIVED.
--- NOTE | 2021-03-04 17:30 | NUR ---
ASSUMED CARE OF PATIENT AT 0600. VENT SETTINGS WERE 30/400/.50 +12. POST ROUNDS PER DR AGUILERA WE INCREASED THE PEEP TO 14. PATIENT SATURATION INCREASED. NO SIGNS OF DISTRESS WERE NOTED.
[2021-03-05] VITALS (29 sets, daily range): BP systolic 95–182; BP diastolic 52–103
[2021-03-05 05:50] LABS: CALCIUM 8.8 mg/dL (8.5-10.1); CREATININE 1.6 mg/dL (0.6-1.0); POTASSIUM 3.7 mmol/L (3.5-5.1)
[2021-03-05 09:02] LABS: PCO2 42.9 mmHg (35.0-45.0); PO2 103.2 mmHg (80.0-100.0); pH 7.401 (7.360-7.450); sO2 97.7 % (92.0-98.0)
[2021-03-05 09:39] LABS: HEMATOCRIT 38.6 % (37.0-47.0); HEMOGLOBIN 12.6 gm/dL (12.0-15.0); MCH 26.7 pg (26.0-34.0); MCHC 32.7 g/dL (28.0-37.0); MCV 81.8 fL (80.0-100.0); RBC 4.71 mil/uL (4.20-5.00); RDW 15.3 % (10.5-14.5); WBC 10.1 thou/uL (4.0-11.0)
--- NOTE | 2021-03-05 17:30 | NUR ---
SPOKE WITH PT'S DAUGHTER, NAEL, FROM [id number] AND SHE WAS UPDATED AND EDUCATED ON THE PATIENT'S CONDITION AND PLAN OF CARE. PATIENT NOT PRORESSING TOWARDS THE PLAN OF CARE EVIDENCED BY CONTINUED HIGH OXYGEN DEMANDS AND NEED FOR INCREASED SEDATION TO COMPLY WITH THE VENTILATOR.
[2021-03-06] VITALS (45 sets, daily range): BP systolic 75–155; BP diastolic 48–93
[2021-03-06 04:24] LABS: ABSOLUTE NEUTROPHILS 12.8 thou/uL (1.4-8.2); BASOPHILS 0.6 % (0.0-2.0); HEMATOCRIT 37.2 % (37.0-47.0); MCH 26.3 pg (26.0-34.0); MCHC 32.2 g/dL (28.0-37.0); MCV 81.6 fL (80.0-100.0); MONOCYTES 2.3 % (1.0-8.0); PLATELET COUNT 120 thou/uL (150-400); POLYS 96.1 % (36.0-66.0); RBC 4.55 mil/uL (4.20-5.00); RDW 14.9 % (10.5-14.5); WBC 13.4 thou/uL (4.0-11.0)
[2021-03-06 04:35] LABS: ALBUMIN 4.1 g/dL (3.4-5.0); CREATININE 1.5 mg/dL (0.6-1.0); POTASSIUM 3.8 mmol/L (3.5-5.1); TOTAL BILIRUBIN 1.6 mg/dL (0.2-1.0)
[2021-03-06 05:10] LABS: BE(vivo) 1.9 mmol/L (-2 to +3); HCO3 29.6 mmol/L (22.0-26.0); PCO2 61.7 mmHg (35.0-45.0); PO2 74.3 mmHg (80.0-100.0); pH 7.299 (7.360-7.450); sO2 93.1 % (92.0-98.0)
[2021-03-06 15:43] LABS: BE(vivo) 1.5 mmol/L (-2 to +3); HCO3 30.9 mmol/L (22.0-26.0); sO2 76.8 % (92.0-98.0)
[2021-03-06 15:44] LABS: PCO2 74.9 mmHg (35.0-45.0); PO2 49.8 mmHg (80.0-100.0); pH 7.234 (7.360-7.450)
--- NOTE | 2021-03-06 17:41 | NUR ---
PATIENT NOT PROGRESSING TOWARDS THE PLAN OF CARE EVIDENCED BY SUSTAINED TACHYCARDIA AND POOR OXYGENATION DESPITE MAXIMUM SUPPORT FROM THE VENTILATOR.
[2021-03-07] VITALS (47 sets, daily range): BP systolic 100–148; BP diastolic 47–72
[2021-03-07 04:57] LABS: HEMATOCRIT 33.1 % (37.0-47.0); HEMOGLOBIN 10.7 gm/dL (12.0-15.0); MCHC 32.4 g/dL (28.0-37.0); MCV 83.5 fL (80.0-100.0); PLATELET COUNT 80 thou/uL (150-400); RBC 3.96 mil/uL (4.20-5.00); RDW 15.1 % (10.5-14.5); WBC 9.1 thou/uL (4.0-11.0)
[2021-03-07 05:10] LABS: CALCIUM 8.7 mg/dL (8.5-10.1); CREATININE 1.9 mg/dL (0.6-1.0); POTASSIUM 4.3 mmol/L (3.5-5.1); TOTAL BILIRUBIN 1.5 mg/dL (0.2-1.0); TOTAL PROTEIN 5.8 g/dL (6.4-8.2)
--- NOTE | 2021-03-07 06:53 | EKG ---
[address] [address] ELECTROCARDIOGRAM REPORT Name: PHILIP BERNARDO Room #: 238-P ADM IN M.R.#: [id number] Admission: 02/20/21 Attend Phys: Clara Dye MD Discharge: Date of : 54 Report #: [id number] [facility] Test Date: 2021-03-06 Test Time: 16:07:46 Pat Name: PHILIP BERNARDO Department: Room: 238 P Gender: F Tellers Supervisor: RUDY : 1950 Requested By: Hernandez Robert Order Number: [id number] : Fabio Clark Measurements Intervals [place] Rate: 132 P: [place]: QRS: 121 QRSD: 110 T: -1 QT: 271 QTc: 402 Interpretive Statements Atrial fibrillation Ventricular tachycardia, unsustained Right axis deviation Borderline repolarization abnormality Compared to ECG 02/26/2021 10:41:24 Ventricular tachycardia now present Right-axis deviation now present Sinus rhythm no longer present Atrial premature complex(es) no longer present Electronically Signed On 03-07-2021 6:52:51 FOUNDRY MELT SUPERVISOR by Fabio Clark [email or web address] <ELECTRONICALLY SIGNED> By: Fabio Clark MD, FACC 03/07/21 0652 [id number] [id number] Fabio Clark MD, [facility] /EPI
[2021-03-07 09:36] LABS: BE(vivo) -2.8 mmol/L (-2 to +3); HCO3 26.7 mmol/L (22.0-26.0); PCO2 72.6 mmHg (35.0-45.0); PO2 63.8 mmHg (80.0-100.0); pH 7.183 (7.360-7.450); sO2 85.9 % (92.0-98.0)
--- NOTE | 2021-03-07 11:50 | NUR ---
PT INTUBATED AND SEDATED. SEDATION VACATION THIS AM, PT WAS ABLE TO BECOME MORE RESPONSIVE BUT DID NOT FSC/TRACK. VENT SETTINGS TITRATED BY RT. UNABLE TO OBTAIN TEMPERATURE FROM PT, WARM BLANKETS APPLIED. ADEQUATE UOP, NO BM, FMS IN PLACE, TUBE FEEDING TURNED OFF PER DR DRAKE DUE TO HYPOACTIVITY AND LARGE GASTRIC RESIDUALS. VERSED/FENTYNL GTT FOR SEDATION AND VENT MANAGEMENT. AMIO GTT TITRATED DOWN BY CARDIOLOGY. PT HAS BEEN THOUROUGHLY UPDATED AND EDUCATED ON PT CONDITION AND POC. WAS NOT ABLE TO SPEAK TO FAMILY TODAY. I WAS RESPONSIBLE FOR CARE FROM [id number]. PT NOT PROGRESSING TOWARDS POC.
--- NOTE | 2021-03-07 16:29 | NUR ---
Patient care discussed during rounds this day. She remains critically ill, on ventilatory support FiO2 100% PEEP of 16. She has been afebrile and not requiring pressor support presently. She is receiving enteral feedings via og tube. Palliative care BLOW PIT HELPER was consulted and has scheduled family meeting tomorrow at 10:30 am. Cm following regarding dc planning.
[2021-03-08] VITALS (90 sets, daily range): BP systolic 96–154; BP diastolic 42–76
[2021-03-08 04:25] LABS: BE(vivo) -0.7 mmol/L (-2 to +3); HCO3 26.9 mmol/L (22.0-26.0); PCO2 59.6 mmHg (35.0-45.0); PO2 90.8 mmHg (80.0-100.0); sO2 95.7 % (92.0-98.0)
[2021-03-08 04:30] LABS: pH 7.273 (7.360-7.450)
[2021-03-08 05:09] LABS: BASOPHILS 0.4 % (0.0-2.0); HEMATOCRIT 30.3 % (37.0-47.0); LYMPHOCYTES 0.7 % (24.0-44.0); MCH 27.2 pg (26.0-34.0); MCHC 33.1 g/dL (28.0-37.0); MCV 82.2 fL (80.0-100.0); MONOCYTES 2.6 % (1.0-8.0); PLATELET COUNT 69 thou/uL (150-400); POLYS 96.3 % (36.0-66.0); RBC 3.69 mil/uL (4.20-5.00); RDW 15.1 % (10.5-14.5); WBC 7.2 thou/uL (4.0-11.0)
[2021-03-08 05:26] LABS: ALBUMIN 3.5 g/dL (3.4-5.0); CALCIUM 8.7 mg/dL (8.5-10.1); CREATININE 1.9 mg/dL (0.6-1.0); POTASSIUM 3.9 mmol/L (3.5-5.1); TOTAL BILIRUBIN 1.4 mg/dL (0.2-1.0); TOTAL PROTEIN 5.1 g/dL (6.4-8.2)
--- NOTE | 2021-03-08 07:32 | NUR ---
PT NOT PROGRESSING WELL TOWARDS D/C GOALS VSS, AFEBRILE. AFTER BATH THIS AM PT SAT BEGAN TO DECREASE TO 84% ON 80% FIO2. INCREASED FIO2 TO 100%. 3 WARM BLANKETS APPLIED ON PT. REPLACED O2 SAT ON FINGER. SAT PRESENTLY 93% ON 100% FIO2. RT AND DAY SHIFT RN NOTIFIED. FINGER SLIGHTLY CYANOTIC AND FACE DUSKY BUT COLOR IS IMPROVING SLOWLY. LUNGS STILL CLEAR WITH DIMIISHED BASES. RR 32 LASIX GIVEN ORDERED. PT MILDLY SEDATED WITH FENTANYL AND VERSED DRIP. CALLED CRITICAL ABGS TO DR JIM. 1 AMP NA HCO3 GIVEN ORDERED. WOUND CARE COMPLETED ORDERED.
--- NOTE | 2021-03-08 15:09 | NUR ---
Pt's care was discussed during icu rounds this day. Pt remains critically ill nonresponsive maintained on ventilatory support FiO2 90% PEEP of 16 she is receiving enteral feedings. [facility] np visited with pt's dtr braden and her this am. Pt's dtr indicated that she needed some time to make a determination as to wheter they wanted to elect comfort care measures. Cm checked scanned images and there isn't an ad on file here. Cm following.
[2021-03-09] VITALS (74 sets, daily range): BP systolic 91–171; BP diastolic 41–80
--- NOTE | 2021-03-09 07:27 | NUR ---
PATIENT NOT PROGRESSING TOWARD GOALS EVIDENCED BY HIGH OXYGEN DEMAND AND VENT SETTINGS. PATIENT FI02 TITRATED FROM 90% TO 80% AND TOLERATED WELL THROUGHOUT THE NOC. IN EARLY AM, PATIENT BEGAN TO DESAT AND TITRATED FIO2 BACK TO 90%. PATIENT DESATS WITH TURNS. PATIENT MAXXED ON VERSED GTT, FENT @ 150, AND AMIO @ 0.5.
--- NOTE | 2021-03-09 16:21 | NUR ---
PT'S CARE DISCUSSED DURING ICU ROUNDS THIS DAY. PT'S CONDITION CONTINUES TO WORSEN. PALLIATIVE DIRECTOR OF EXTENSION WORK HAD VISITED WITH DTR AND SON IN LAW YESTERDAY AND THEY HAVEN'T RESPONDED TO HER OR OTHER STAFF RELATED TO CARE DECISION OR ELECTING CONFORT MEASURES OF THIS NOTE. CM FOLLOWING.
[2021-03-09 21:35] LABS: BE(vivo) 2.1 mmol/L (-2 to +3); HCO3 28.6 mmol/L (22.0-26.0); PCO2 53.8 mmHg (35.0-45.0); PO2 59.8 mmHg (80.0-100.0); pH 7.343 (7.360-7.450); sO2 89.1 % (92.0-98.0)
[2021-03-10] VITALS (41 sets, daily range): BP systolic 100–119; BP diastolic 46–71
--- NOTE | 2021-03-10 05:23 | NUR ---
Dr rincon notified of pt's low oxygen saturation level (<90%) at 2250. He ordered 40mg of lasix
--- NOTE | 2021-03-10 07:45 | NUR ---
Patient in not progressing towards plan of care as evidenced by maximun dependence on mechanical ventilation for oxygen support (PEEP 16, FIO2 100, RR 32, TV 430) and high dependence on sedation and BP gtts.
--- NOTE | 2021-03-10 14:09 | NUR ---
WOUND CARE F/U; ASSESSMENT WAS ATTEMPTED TODAY. THE BUILDING PRINCIPAL SAID, "THE PATIENT IS TOO UNSTABLE TO TURN" THE PATIENT ONLY HAS FUNGAL AREAS THAT ARE MUCH BETTER. THEREFORE THERE IS NO ACUTE NEED TO ASSESS TODAY. I WILL ATTEMPT TOMORROW IF THE PATIENT CONDITION IS MORE STABLE. DISCUSSED WITH THE RN.
[2021-03-10 16:09] LABS: ABSOLUTE NEUTROPHILS 8.5 thou/uL (1.4-8.2); BASOPHILS 0.7 % (0.0-2.0); HEMATOCRIT 32.4 % (37.0-47.0); HEMOGLOBIN 10.4 gm/dL (12.0-15.0); LYMPHOCYTES 0.6 % (24.0-44.0); MCH 26.7 pg (26.0-34.0); MCHC 31.9 g/dL (28.0-37.0); MCV 83.7 fL (80.0-100.0); MONOCYTES 1.7 % (1.0-8.0); PLATELET COUNT 69 thou/uL (150-400); RBC 3.88 mil/uL (4.20-5.00); RDW 15.6 % (10.5-14.5); WBC 8.7 thou/uL (4.0-11.0)
[2021-03-10 16:27] LABS: ALBUMIN 4.1 g/dL (3.4-5.0); CALCIUM 9.3 mg/dL (8.5-10.1); CREATININE 1.9 mg/dL (0.6-1.0); POTASSIUM 4.1 mmol/L (3.5-5.1); TOTAL BILIRUBIN 2.7 mg/dL (0.2-1.0); TOTAL PROTEIN 5.7 g/dL (6.4-8.2)
[2021-03-10 17:12] LABS: MAGNESIUM 2.9 mg/dL (1.8-2.4)
[2021-03-10 20:03] LABS: URINE BILIRUBIN NEGATIVE (Negative); URINE BLOOD 3+ (Negative); URINE CLARITY CLOUDY; URINE COLOR YELLOW; URINE GLUCOSE-RANDOM* NEGATIVE (Negative); URINE KETONES NEGATIVE (Negative); URINE NITRITE-REFLEX NEGATIVE (Negative); URINE PROTEIN (DIPSTICK) NEGATIVE (Negative); URINE UROBILINOGEN 0.2 E.U./dl (0.2-1.0)
[2021-03-10 20:04] LABS: URINE LEUKOCYTES-REFLEX 2+ (Negative)
[2021-03-10 20:22] LABS: SQUAMOUS 0-3 Few /LPF (0-3)
[2021-03-10 20:23] LABS: AMORPHOUS URATES Moderate /LPF (None Seen); BACTERIA-REFLEX 1-9 Few /HPF (None Seen); CRYSTALS None Seen /LPF (None Seen); HYALINE CASTS 0-3 Few /LPF (None Seen); URINE RBC 3-10 Few /HPF (NONE SEEN); URINE WBC-REFLEX 6-15 Few /HPF (0-5)
[2021-03-11] VITALS (100 sets, daily range): BP systolic 87–145; BP diastolic 38–64
--- NOTE | 2021-03-11 07:12 | NUR ---
Patient is not progressing towards plan of care as evidenced by continued dependence of mechanical ventilation for oxygen support. Pt still sedated (fentanyl 150, versed 10, precedex 0.4. -ve cough/gag reflex.
--- NOTE | 2021-03-11 11:11 | NUR ---
FAMILY IS NOT COMMUNICATING WITH STAFF CONCERNING THE MEDICAL TREATMENT OF THIS PT. SHE IS NOT PROGRESSING EVIDENCED BY BEING ON 90% FIO2 AND 16 PEEP. SHE IS BECOMING HYPOTENSIVE WITH LOW SATT 92-93% AND TACHYPNEIC. PT LOOKS ASHEN AND GARCIA; THEREFORE, HOSPITALIST DETERMINES THAT TREATMENT IS FUTILE. HOSPITALIST AND PULMONOLOGY WILL DISCUSS TO MAKE HER A NO CODE. WILL FOLLOW UP TO DETERMINE THE POC.
[2021-03-11 14:26] LABS: ABSOLUTE NEUTROPHILS 9.7 thou/uL (1.4-8.2); BASOPHILS 0.1 % (0.0-2.0); EOSINOPHILS 0.1 % (0.0-3.0); HEMATOCRIT 35.5 % (37.0-47.0); HEMOGLOBIN 11.2 gm/dL (12.0-15.0); LYMPHOCYTES 0.8 % (24.0-44.0); MCH 26.2 pg (26.0-34.0); MCHC 31.5 g/dL (28.0-37.0); MCV 83.4 fL (80.0-100.0); MONOCYTES 1.2 % (1.0-8.0); PLATELET COUNT 81 thou/uL (150-400); POLYS 97.8 % (36.0-66.0); RBC 4.25 mil/uL (4.20-5.00); RDW 15.6 % (10.5-14.5); WBC 9.9 thou/uL (4.0-11.0)
[2021-03-11 14:53] LABS: ALBUMIN 3.8 g/dL (3.4-5.0); CALCIUM 9.2 mg/dL (8.5-10.1); POTASSIUM 4.2 mmol/L (3.5-5.1); TOTAL BILIRUBIN 2.1 mg/dL (0.2-1.0); TOTAL PROTEIN 5.7 g/dL (6.4-8.2)
--- NOTE | 2021-03-11 15:19 | NUR ---
PT'S CARE DISCUSSED DURING ICU ROUNDS. PT'S ON 100% FIO2 PEEP 16. PT'S TUBE FEEDING IS ON HOLD. PT'S DTR HASN'T RETURNED STAFF PHONE CALLS SINCE GOC/PALLIATIVE CARE MEETING SUNDAY. CM FOLLOWING.
[2021-03-12] VITALS (79 sets, daily range): BP systolic 93–147; BP diastolic 38–64
[2021-03-12 07:09] LABS: ABSOLUTE NEUTROPHILS 8.3 thou/uL (1.4-8.2); BASOPHILS 0.1 % (0.0-2.0); EOSINOPHILS 0.1 % (0.0-3.0); HEMOGLOBIN 11.4 gm/dL (12.0-15.0); LYMPHOCYTES 0.7 % (24.0-44.0); MCH 26.2 pg (26.0-34.0); MCHC 31.6 g/dL (28.0-37.0); MCV 82.8 fL (80.0-100.0); MONOCYTES 1.9 % (1.0-8.0); POLYS 97.2 % (36.0-66.0); RBC 4.34 mil/uL (4.20-5.00); RDW 14.7 % (10.5-14.5); WBC 8.6 thou/uL (4.0-11.0)
[2021-03-12 07:13] LABS: PLATELET COUNT 69 thou/uL (150-400)
[2021-03-12 07:21] LABS: ALBUMIN 3.4 g/dL (3.4-5.0); CREATININE 1.9 mg/dL (0.6-1.0); TOTAL BILIRUBIN 1.9 mg/dL (0.2-1.0); TOTAL PROTEIN 5.5 g/dL (6.4-8.2)
--- NOTE | 2021-03-12 16:53 | NUR ---
Patient is not progressing towards goal. Vent settings remain the same 100% with PEEP of 16. Patient did maintain oxygen saturation better tonight, mostly over 90%, any movement/adjustment does compromise this, slowly recovers. ON/OFF levophed today only requiring small dose when needed. Sedations to keep RASS -3/-4. No contact with family tonight. HIT anibody panel sent due to platelet count, heparin on hold. Adequate UO with lasix. Afebrile my shift.
--- NOTE | 2021-03-12 18:45 | NUR ---
Spoke with Dr. John reguarding patient ventilator settings/pressures. Vent changes received and given to RT, RT attempted those changes and patient did not tolerated (O2 sats decreased to 70s) Per Dr. John place patient back on previous settings. VC-AC Rate 32 TV 450 FiO2 100% PEEP decreased from 16 to 14. Albumin and lasix given due to patient fluid balance being positive my shift.
--- NOTE | 2021-03-12 19:10 | NUR ---
Resume heparin per Dr. John due to patient being high risk for DVT/PE. aware of HIT panel
[2021-03-12 20:56] LABS: BE(vivo) 5.2 mmol/L (-2 to +3); HCO3 33.1 mmol/L (22.0-26.0); PO2 62.7 mmHg (80.0-100.0); sO2 89.1 % (92.0-98.0)
[2021-03-12 20:57] LABS: PCO2 67.8 mmHg (35.0-45.0); pH 7.307 (7.360-7.450)
[2021-03-13] VITALS (89 sets, daily range): BP systolic 74–130; BP diastolic 31–50
[2021-03-13 00:57] LABS: HEMATOCRIT 32.6 % (37.0-47.0); HEMOGLOBIN 10.5 gm/dL (12.0-15.0); MCH 26.7 pg (26.0-34.0); MCHC 32.1 g/dL (28.0-37.0); MCV 83.2 fL (80.0-100.0); RBC 3.92 mil/uL (4.20-5.00); RDW 15.2 % (10.5-14.5)
[2021-03-13 05:31] LABS: CALCIUM 8.7 mg/dL (8.5-10.1); POTASSIUM 4.4 mmol/L (3.5-5.1)
--- NOTE | 2021-03-13 06:00 | NUR ---
REMAINS INTUBATED AND SEDATED. NOT PROGRESSING TOWARD GOALS 1600 CC UO THIS SHIFT. REMAINS ON 100 % FIO2. DESATS EASILY. WILL CONT TO MONITOR
--- NOTE | 2021-03-13 09:31 | NUR ---
Called [place] non-emergency line to do a wellness check on patients family since we have not been in contact wi family since sunday.
[2021-03-13 17:24] LABS: BE(vivo) 6.4 mmol/L (-2 to +3); HCO3 35.1 mmol/L (22.0-26.0); PO2 59.3 mmHg (80.0-100.0); sO2 86.1 % (92.0-98.0)
[2021-03-13 17:25] LABS: PCO2 76.7 mmHg (35.0-45.0); pH 7.278 (7.360-7.450)
[2021-03-14] VITALS (57 sets, daily range): BP systolic 95–147; BP diastolic 36–56
[2021-03-14 05:27] LABS: HEMATOCRIT 29.7 % (37.0-47.0); HEMOGLOBIN 9.7 gm/dL (12.0-15.0); MCHC 32.8 g/dL (28.0-37.0); MCV 82.4 fL (80.0-100.0); RBC 3.6 mil/uL (4.20-5.00); RDW 15.3 % (10.5-14.5); WBC 7.3 thou/uL (4.0-11.0)
[2021-03-14 05:57] LABS: CALCIUM 8.9 mg/dL (8.5-10.1); CREATININE 1.8 mg/dL (0.6-1.0)
--- NOTE | 2021-03-14 06:00 | NUR ---
REMAINS INTUBATED AND SEDATED. LEVOPHED GTT AT 1 MCG. DESATS TO 70'S WITH ANY MOVEMENT. NOT PROGRESSING TOWARD GOALS. NO WORD FROM FAMILY AT ALL [place] [employer] HAVE NOT REPORTED BACK ON WELLNESS CHECK. WILL CONT TO MONITOR
--- NOTE | 2021-03-14 09:12 | NUR ---
Informed Dr. John that patient oxygen saturation is 79% on FiO2 100% PEEP of 12. stated to increase PEEP to 14. Called [facility]
--- NOTE | 2021-03-14 10:31 | NUR ---
WOUND CARE F/U; THE PATIENTS CONDITION HAS DETERIORATED AND LIKELY WILL PASS TODAY. THE RN STATED THE PATIENT WAS TOO UNSTABLE TO TURN.
--- NOTE | 2021-03-14 16:00 | NUR ---
DR. AGUILERA WITH PULM SPOKE WITH PT'S DTR NAEL. SHE INDICATED THAT SHE HASN'T BEEN WELL. SHE ELECTED FOR PT TO BE DNR. PT REMAINS ON VENT FIO2 100% PEEP OF 14. PT CONTINUES WITH OG TUBE FEEDINGS VITAL AR AT 40. PT OUT OF COVID ISO STILL IN ISO FOR CDIFF. CM FOLLOWING.
--- NOTE | 2021-03-14 17:45 | NUR ---
Patient is not progressing towards goal. Code status changed to no code. Spoke with daughter twice today, daughter is ill and unable to come visit. Daughter stated a Ramírez Esquivel will come by to clam picker patients belongings. All questions and concerns addressed. Patient on sedation: fentanyl, versed, precedex and levophed. O2 sats 76-83% on 100% PEEP of 14. PORSHA Villanueva updated on patients status.
--- NOTE | 2021-03-14 22:24 | NUR ---
Patient desaturates with oral care or any big stimulation.
[2021-03-15] VITALS (81 sets, daily range): BP systolic 90–141; BP diastolic 38–59
[2021-03-15 05:43] LABS: HEMATOCRIT 27.7 % (37.0-47.0); HEMOGLOBIN 9.3 gm/dL (12.0-15.0); MCH 27.4 pg (26.0-34.0); MCHC 33.5 g/dL (28.0-37.0); MCV 81.7 fL (80.0-100.0); RBC 3.39 mil/uL (4.20-5.00); RDW 15.6 % (10.5-14.5); WBC 6.8 thou/uL (4.0-11.0)
[2021-03-15 06:12] LABS: CALCIUM 8.6 mg/dL (8.5-10.1); CREATININE 1.7 mg/dL (0.6-1.0); POTASSIUM 4.1 mmol/L (3.5-5.1)
--- NOTE | 2021-03-15 12:47 | NUR ---
RN THIS AM NOTICED PT FMS HAD LEAKED AROUND THE TUBE. RN AND STAVE MACHINE TENDER CLEANED PT UP AT 0930. LARGE AMOUNT OF STOOL WAS UNDER HER THEREFORE SHE WA LAID FLAT FOR AN EXTENDED PERIOD OF TIME. PT DESATED LOW MID 50S. ONCE PT WAS CLEANED UP AND SAT UP AND REPOSITIONED, PT IS SATTING AT 76.
--- NOTE | 2021-03-15 13:50 | NUR ---
PT TUBE FEED RESIDUAL WAS 300 ML THIS MORNING AND HAD NOT RECEIVED A WATER FLUSH BETWEEN LAST CHEK AND 0800 CHECK. RN PUT TUBE FEED ON HOLD UNTIL 0930. RESIDUAL WAS STILL 300 ML. RN KEPT TUBE FEED ON HOLD UNTIL 1200 CHECK. RESIDUAL WAS 300 BUT HAD RECEIVED MEDICATIONS AT 0900 MIXED WITH WATER. RN RESTARTED TUBE FEED AT RATE OF 10 ML/HR. WILL CONTINUE TO MONITOR.
--- NOTE | 2021-03-15 16:08 | NUR ---
THIS RN TALKED TO CHRISS ASSURANCE MANAGER, AT 1607 AND TALKED WITH HER REGARDING TWO VISITORS IN THE ROOM FOR THE PATIENT IN ROOM [address]. DR. AGUILERA PREVIOUSLY CALLED THIS RN AT 1605 AND HE SAID THE DAUGHTER OF THE PATIENT AND THE FIANCE OF THE DAUGHTER WOULD COME TO VISIT AND MAKE A DECISION TO GO COMFORT OR FULL CARE. ASSURANCE MANAGER OK'D THE VISIT AND SAID THE VISITORS COULD BE IN THE ROOM FOR A MAXIMUM OF 2 HOURS. ALL THIS INFORMATION WAS REPORTED TO ISIDRA BARNETT AT 1611.
--- NOTE | 2021-03-15 20:31 | NUR ---
Patients temperature 95.4 F, RN placed bear hugger on patient at low setting. Will keep monitoring.
[2021-03-16] VITALS (90 sets, daily range): BP systolic 87–136; BP diastolic 30–57
--- NOTE | 2021-03-16 04:13 | NUR ---
Patient had a bowel movement, when team laid patient flat to turn and clean, patient desatted to the 70's. Now back to prior base satuation of 82%. Does not tolerate activity.
--- NOTE | 2021-03-16 16:37 | NUR ---
DR. AGUILERA HAD SPOKEN TO DTR. NAYAK AND SHE WAS SUPPOSED TO VISIT PT YESTERDAY BUT NURSE INDICATED SHE HADN'T. PT'S REMAINS VERY GUARDED. PT IS DNR. CM FOLLOWING.
[2021-03-17] VITALS (97 sets, daily range): BP systolic 97–136; BP diastolic 34–49
[2021-03-17 06:57] LABS: CALCIUM 8.6 mg/dL (8.5-10.1); POTASSIUM 5.1 mmol/L (3.5-5.1)
[2021-03-17 07:05] LABS: HEMATOCRIT 25.4 % (37.0-47.0); HEMOGLOBIN 8.1 gm/dL (12.0-15.0); MCH 26.7 pg (26.0-34.0); MCV 83.3 fL (80.0-100.0); RBC 3.05 mil/uL (4.20-5.00); RDW 16.1 % (10.5-14.5); WBC 5.5 thou/uL (4.0-11.0)
--- NOTE | 2021-03-17 08:14 | NUR ---
REMAINS INTUBATED AND SEDATED WITH FENTANYL PRECEDEX AND VERSED GTT LEVOPHED GTT REMAINS AT 7 MCG FOR BP SUPPORT. BATHED PT REMAINS A DNR NO WORD FROM FAMILY. THEY WILL POSSIBLY MAKE HER PALLATIVE CARE SOON. NOT PROGRESSING TOWARD GOALS. WILL CONT TO MONITOR
[2021-03-18] VITALS (84 sets, daily range): BP systolic 73–133; BP diastolic 25–49
--- NOTE | 2021-03-18 02:54 | NUR ---
PT BEGAN TO DESAT TO 84-87% AT 0220. PT WAS SUCTIONED WITH NO PRORESSION IN THE OXYGEN SAT. RT WAS CALLED AND RT TRIED PRESSURE CONTROL ON THE VENT, NO BETTER OUTCOME. SWITCHED BACK TO ASSIST CONTROL AND PEEP INCREASED TO 16. WCTM. AWARE OF PATIENT DESATTING BELOW 90% IN THE PAST.
[2021-03-18 06:42] LABS: BASOPHILS 1.2 % (0.0-2.0); HEMATOCRIT 24.3 % (37.0-47.0); HEMOGLOBIN 7.8 gm/dL (12.0-15.0); LYMPHOCYTES 2.2 % (24.0-44.0); MCH 26.7 pg (26.0-34.0); MCV 83.4 fL (80.0-100.0); MONOCYTES 3.5 % (1.0-8.0); PLATELET COUNT 61 thou/uL (150-400); POLYS 93.1 % (36.0-66.0); RBC 2.91 mil/uL (4.20-5.00); RDW 16.1 % (10.5-14.5); WBC 5.4 thou/uL (4.0-11.0)
[2021-03-18 06:51] LABS: ALBUMIN 3.1 g/dL (3.4-5.0); CALCIUM 8.6 mg/dL (8.5-10.1); CREATININE 2.1 mg/dL (0.6-1.0); POTASSIUM 5.2 mmol/L (3.5-5.1); TOTAL BILIRUBIN 1.6 mg/dL (0.2-1.0)
--- NOTE | 2021-03-18 19:01 | NUR ---
axillary temp 94.1, applied warming blanket. pt remains supine, sa02-74%. called Dr. John and notified Art, RT of pt sa02-74%. report given ERICKA Hernandez.
--- NOTE | 2021-03-18 22:25 | NUR ---
PT BLOOD PRESSURE CONTINUED TO DROP AND NURSE KEPT INCREASING LEVO. LOKESH FINK CALLED AND REQUESTED ANOTHER PRESSOR. AZEB ADDED TO EMAR TO KEEP MAP ABOVE 60. WCTM.
[2021-03-19] VITALS (17 sets, daily range): BP systolic 53–159; BP diastolic 28–79
--- NOTE | 2021-03-19 00:16 | NUR ---
PT BLOOD PRESSURE CONTINUES TO DROP. SPOKE WITH DR TIM AGUILERA AND VASSOPRESSIN WAS ADDED TO EMAR.SPOKE TO HIM AT 9962.MULTIPLE ATTEMPTS TO CONTACT FAMILY WITH TO CALL RETURN. GOAL TO KEEP [id number]. WCTM.
--- NOTE | 2021-03-19 01:02 | NUR ---
0045- PT WENT INTO SUSTAINED VTACH. DR AGULIERA ON UNIT AND MADE AWARE. NO NEW ORDERS. CONVERTED BACK INTO NSR
--- NOTE | 2021-03-19 04:14 | NUR ---
HOSPITALIST MONTSE FINK CONTACTED AT 0135 ABOUT PATIENTS DECLINING BLOOD PRESSURE DESPITE MAXED ON MULTIPLE PRESSORS. PER CLINICAL MOLECULAR GENETICIST WILL NOT ADD ANOTHER PRESSOR. WILL CONTINUE TO MONITOR. NO NEW ORDERS AT THIS TIME.
--- NOTE | 2021-03-19 06:35 | NUR ---
PT AT 043. HOSPITALIST MONTSE FINK WAS CONTACTED AND DR ELIZABETH TIAN PRONOUNCED. DR TIM AGUILERA WAS ALSO CONTACTED. DAUGHTER NAEL WAS CALLED WITH NO ANSWER OR PHONE CALL RETURNED BACK. A MESSAGE WAS LEFT. [facility] WAS CALLED WITHIN THE HOUR.
== END 2021-03-19 04:31 | DRG 870 ==
LOC: ER 16:53 → EROBS 19:26 → 3W 19:26 → ICU 02-27 00:39
PROVIDERS: Emergency Medicine; Internal Medicine; Internal Medicine Nephrology; Internal Medicine Pulmonary Disease; Nurse Practitioner; Nurse Practitioner Family; Pediatrics; Specialist; ADMIT Hospitalist; ATTEND Hospitalist
DX: A41.89 Other specified sepsis (principal); J96.01 Acute respiratory failure with hypoxia; U07.1 COVID-19; E43 Unspecified severe protein-calorie malnutrition; J12.82 Pneumonia due to coronavirus disease 2019; N39.0 Urinary tract infection, site not specified; N17.9 Acute kidney failure, unspecified; Z68.43 Body mass index [BMI] 50.0-59.9, adult; A04.72 Enterocolitis due to Clostridium difficile, not specified as recurrent; I47.2 Ventricular tachycardia; Z88.8 Allergy status to other drugs, medicaments and biological substances; I48.91 Unspecified atrial fibrillation; Z79.01 Long term (current) use of anticoagulants; E03.9 Hypothyroidism, unspecified; D64.9 Anemia, unspecified; B96.20 Unspecified Escherichia coli [E. coli] as the cause of diseases classified elsewhere; J84.10 Pulmonary fibrosis, unspecified; D69.6 Thrombocytopenia, unspecified; Z66 Do not resuscitate; I12.9 Hypertensive chronic kidney disease with stage 1 through stage 4 chronic kidney disease, or unspecified chronic kidney disease; N18.30 Chronic kidney disease, stage 3 unspecified; E66.01 Morbid (severe) obesity due to excess calories
CPT/HCPCS: 10078; 10879